=== PATIENT | female | born 1990 | race Caucasian/White ===

== ENCOUNTER 2017-04-30 15:07 | Emergency (ER) | payer OTHER ==
[2017-04-30 15:08] VITALS: BMI 37.1
--- NOTE | 2017-04-30 15:32 | C.PDOC ---
History Of Present Illness 26 y/o female presents to ED with complaints of missed menses this month. Patient reports she is sexually active with no protection and had 1 episode of vomiting yesterday and another one today after eating lunch. At ED patient denies urinary symptoms and states menses began while at ED. Patient denies fever, abdominal pain or any other complaints at this time. Time Seen by Provider: 04/30/17 15:23 Chief Complaint (Nursing): Female Genitourinary History Per: Patient History/Exam Limitations: no limitations Onset/Duration Of Symptoms: Days Current Symptoms Are (Timing): Still Present Associated Symptoms: Nausea, Vomiting. denies: Fever, Diarrhea, Urinary Symptoms Past Medical History Reviewed: Historical Data, Nursing Documentation, Vital Signs Vital Signs: Last Vital Signs Temp 98.2 F 04/30/17 15:13 Pulse 86 04/30/17 15:13 Resp 20 04/30/17 15:13 BP 131/71 04/30/17 15:13 Pulse Ox 97 04/30/17 15:46 - [facility] Procedures DELIVERY OF PRODUCTS OF CONCEPTION, EXTERNAL APPROACH (09/10/15) INTRODUCTION OF SERUM/TOX/VACCINE INTO MUSCLE, PERC APPROACH (09/10/15) MONITORING OF POC, CARDIAC RATE, SUPERVISOR BLOOMING MILL APPROACH (09/10/15) REPAIR FEMALE PERINEUM, EXTERNAL APPROACH (09/10/15) Family History: States: No Known Family Hx - Social History Hx Alcohol Use: No Hx Substance Use: No - Immunization History Hx Tetanus Toxoid Vaccination: Yes Hx Influenza Vaccination: Yes Hx Pneumococcal Vaccination: No Review Of Systems Constitutional: Negative for: Fever, Chills Gastrointestinal: Positive for: Vomiting. Negative for: Nausea, Abdominal Pain Genitourinary: Negative for: Dysuria, Frequency Skin: Negative for: Rash Neurological: Negative for: Weakness, Headache, Dizziness Physical Exam - Physical Exam Appears: Non-toxic, No Acute Distress Skin: Normal Color, Warm Head: Atraumatic, Normacephalic Oral Mucosa: Moist Neck: Normal ROM Cardiovascular: Rhythm Regular, No Murmur Respiratory: No Rales, No Rhonchi, No Wheezing Gastrointestinal/Abdominal: Soft, No Tenderness, No Guarding, No Rebound Extremity: Normal ROM Neurological/Psych: Oriented x3, Normal Speech, Normal Cognition ED Course And Treatment O2 Sat by Pulse Oximetry: 97 (RA) Pulse Ox Interpretation: Normal Disposition Counseled Patient/Family Regarding: Diagnosis, Need For Followup - Disposition Disposition: HOME/ ROUTINE Disposition Time: 15:44 Condition: STABLE Additional Instructions: Follow up with your quality assurance coordinator. Return to ER for any worsening symptoms. Forms: General Discharge Instructions - Clinical Impression Clinical Impression: Menstrual period late - PA / SLIMER / Resident Statement MD/DO has reviewed & agrees with the documentation as recorded. - Scribe Statement The provider has reviewed the documentation as recorded by the Sony Hamlin All medical record entries made by the Sony were at my direction and personally dictated by me. I have reviewed the chart and agree that the record accurately reflects my personal performance of the history, physical exam, medical decision making, and the department course for this patient. I have also personally directed, reviewed, and agree with the discharge instructions and disposition.
[2017-04-30 16:06] VITALS: BP 124/85; PULSE 90; RESP 18; TEMP 98.4; O2SAT 96
== END 2017-04-30 15:58 | disposition home or self-care (01) ==
LOC: MERGE 15:07 → C.ER 15:07
DX: N91.0 Primary amenorrhea (principal)

== ENCOUNTER 2018-10-21 15:59 | Emergency (ER) | payer OTHER ==
[2018-10-21 15:59] VITALS: BMI 37.5
[2018-10-21 16:07] VITALS: BP 144/99; PULSE 104; RESP 20; TEMP 97.5; O2SAT 99
--- NOTE | 2018-10-21 16:31 | C.PDOC ---
History Of Present Illness 28-year-old female presents to the ED for evaluation of right ankle injury sustained just prior to arrival. Patient states while walking in the parking lot out back she stepped on uneven pavement and fell. Now she complains of pain and swelling to the right ankle. Patient also sustained an abrasion to the left knee. Reports she is unable to bear weight on the right leg. Patient otherwise denies any numbness, tingling, or other injury. Ice pack and Tylenol PO provided in triage. Time Seen by Provider: 10/21/18 16:06 Chief Complaint (Nursing): Lower Extremity Problem/Injury History Per: Patient History/Exam Limitations: no limitations Onset/Duration Of Symptoms: Mins Current Symptoms Are (Timing): Still Present - Ankle/Foot Description Of Injury: Fell Currently Unable To: Bear Weight Past Medical History Reviewed: Historical Data, Nursing Documentation, Vital Signs Vital Signs: Last Vital Signs Temp 97.5 F L 10/21/18 16:06 Pulse 104 H 10/21/18 16:06 Resp 20 10/21/18 16:06 BP 144/99 H 10/21/18 16:06 Pulse Ox 99 10/21/18 16:06 - Medical History PMH: HTN Denies: Depression, Diabetes Surgical History: No Surg Hx - [facility] Procedures DELIVERY OF PRODUCTS OF CONCEPTION, EXTERNAL APPROACH (02/03/18) INTRODUCTION OF SERUM/TOX/VACCINE INTO MUSCLE, PERC APPROACH (09/10/15) MONITORING OF POC, CARDIAC RATE, MATTRESS STRIPPER APPROACH (02/03/18) REPAIR FEMALE PERINEUM, EXTERNAL APPROACH (09/10/15) REPAIR PERINEUM SKIN, EXTERNAL APPROACH (02/03/18) Family History: States: No Known Family Hx - Social History Hx Tobacco Use: No Hx Alcohol Use: No (due to ) Hx Substance Use: No - Immunization History Hx Tetanus Toxoid Vaccination: No Hx Influenza Vaccination: Yes (2014) Hx Pneumococcal Vaccination: No Review Of Systems Musculoskeletal: Positive for: Leg Pain (Left knee pain and abrasion), Foot Pain (right ankle pain/swelling), Other (Unable to bear weight) Skin: Negative for: Rash Neurological: Negative for: Weakness, Numbness Physical Exam - Physical Exam Appears: Well, Non-toxic, No Acute Distress Skin: Warm, Dry, No Rash Head: Atraumatic, Normacephalic Eye(s): bilateral: Normal Inspection Neck: Normal ROM Extremity: No Normal ROM (Limited ROM secondary to pain), Tenderness (to the right lateral malleolus), Capillary Refill (less than 2 sec), No Deformity, Swelling (moderate swelling to the right ankle), Other (+ superficial abrasion to the left knee, no gross swelling or ecchymosis) Pulses: Left Dorsalis Pedis: Normal, Right Dorsalis Pedis: Normal Neurological/Psych: Oriented x3, Normal Motor, Normal Sensation ED Course And Treatment O2 Sat by Pulse Oximetry: 99 (RA) Pulse Ox Interpretation: Normal - Other Rad X-ray left knee X-Ray: Read By Radiologist Interpretation: Accession No. : [id number]. Patient Name / ID : NICOLE ZAMUDIO / [id number]. Exam Date : 10/21/2018 16:25:24 ( Approved ). Study Comment : Sex / Age : F / 28Y. Creator : Brenna Avitia MD. Dictator : Brenna Avitia MD. Senior Education Specialist : Corner Trimmer Operator : Brenna Avitia MD. Approver2 : Report Date : 10/21/2018 18:30:00. My Comment : . PROCEDURE: Left Knee Radiographs. HISTORY: pain s.p fall. COMPARISON: No prior. FINDINGS: Examination limited by habitus. BONES: No acute displaced fracture. JOINTS: No dislocation. JOINT EFFUSION: No significant joint effusion. OTHER FINDINGS: None. IMPRESSION: No acute displaced fracture, dislocation, or significant joint effusion identified. If symptoms persist, or if there is continued clinical concern, x-ray follow-up in 7-10 days should be considered. X-ray right ankle X-Ray: Read By Radiologist Interpretation: Accession No. : [id number]. Patient Name / ID : NICOLE ZAMUDIO / [id number]. Exam Date : 10/21/2018 16:25:37 ( Approved ). Study Comment : Sex / Age : F / 28Y. Creator : Brenna Avitia MD. Dictator : Brenna Avitia MD. Senior Education Specialist : Corner Trimmer Operator : Brenna Avitia MD. Approver2 : Report Date : 10/21/2018 18:31:58. My Comment : . PROCEDURE: Right Ankle Radiographs. HISTORY: pain s.p fall. COMPARISON: None available. FINDINGS: BONES: Irregularity about the distal fibula at the lateral malleolus consistent with acute intra-articular fracture. The remainder the visualized osseous structures appear intact without acute displaced fracture identified. JOINTS: No dislocation. SOFT TISSUES: Soft tissue swelling. No evidence of radiopaque foreign body. OTHER FINDINGS: None. IMPRESSION: Appearance consistent with acute fracture of the distal fibula with intra-articular extension. Associated soft tissue swelling. Medical Decision Making Medical Decision Making: Impression: Right ankle pain, left knee pain, s/p fall Plan: X-rays taken of right ankle and left knee Progress: 1720 Page podiatry consult 1723 Podiatry resident returned call, imaging reviewed, and will come to evaluate patient and place splint. 1735 Podiatry states he will be delayed because of surgical procedure at [place] and to inform patient if willing to wait. I informed the patient and she states she will wait. 2014 Podiatry Floydjelly arrives to ED. He applied splint and gave patient follow up instructions Disposition Counseled Patient/Family Regarding: Diagnosis, Need For Followup, Rx Given - Disposition Referrals: at [facility] [Outside] [facility] [Outside] Marla Yost DPM [Staff Provider] - Disposition: HOME/ ROUTINE Disposition Time: 17:39 Condition: GOOD Additional Instructions: Your xray shows a fracture. It is very important you follow up with orthopedic within 1-4 days. A splint has been applied which is a temporary cast. Do not wet splint, keep out of bath, and consider plastic bag. Follow up with road builder Prescriptions: Ibuprofen [Motrin] 600 mg PO Q8 #30 tab oxyCODONE/Acetaminophen [Percocet 5/325 mg Tab] 1 tab PO Q8 PRN #20 tab PRN Reason: Pain, Severe (8-10) Instructions: Ankle Fracture (DC) Print Language: THAI - POA Present On Arrival: Falls Or Trauma - Clinical Impression Clinical Impression: Ankle fracture, Fall from slip, trip, or stumble - PA / WORK MANAGER / Resident Statement MD/DO has reviewed & agrees with the documentation as recorded. - Scribe Statement The provider has reviewed the documentation as recorded by the Sony Russ All medical record entries made by the Nunuibmeli were at my direction and personally dictated by me. I have reviewed the chart and agree that the record accurately reflects my personal performance of the history, physical exam, medical decision making, and the department course for this patient. I have also personally directed, reviewed, and agree with the discharge instructions and disposition.
--- NOTE | 2018-10-21 18:33 | RAD ---
PROCEDURE: Left Knee Radiographs. HISTORY: pain s.p fall COMPARISON: No prior. FINDINGS: Examination limited by habitus. BONES: No acute displaced fracture. JOINTS: No dislocation. JOINT EFFUSION: No significant joint effusion. OTHER FINDINGS: None. IMPRESSION: No acute displaced fracture, dislocation, or significant joint effusion identified. If symptoms persist, or if there is continued clinical concern, x-ray follow-up in 7-10 days should be considered.
--- NOTE | 2018-10-21 18:35 | RAD ---
PROCEDURE: Right Ankle Radiographs. HISTORY: pain s.p fall COMPARISON: None available. FINDINGS: BONES: Irregularity about the distal fibula at the lateral malleolus consistent with acute intra-articular fracture. The remainder the visualized osseous structures appear intact without acute displaced fracture identified. JOINTS: No dislocation. SOFT TISSUES: Soft tissue swelling. No evidence of radiopaque foreign body. OTHER FINDINGS: None. IMPRESSION: Appearance consistent with acute fracture of the distal fibula with intra-articular extension. Associated soft tissue swelling.
--- NOTE | 2018-10-21 21:03 | CP.PCM.CON ---
History of Present Illness - History of Present Illness History of Present Illness: Podiatry Consult note for attending Dr. Yost: 28 y/o female PMH HTN seen and evaluated in the ED for R ankle pain and swelling. 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 Patient states that she felt pain immediately and couldn't step over her right foot. Patient states that her right ankle got swallen from outside also. Patient rates the pain as 9/10 on VAS scale. She states that the pain went down to 3/10 after taking Tylenol. . Patient denies any tingling, numbness or burning sensation to the affected lower extremity. Patient deniesany recent f/n/v/d/c or sob. Patient denies any other pedal complaint at this time PMH: HTN PSH: None Allergies: NKDA Social hx: Denies tobaco, EtOH user; denies illicit drug use Review of Systems - Review of Systems Review of Systems: As per HPI - Constitutional Constitutional: As Per HPI Past Patient History - Past Social History Smoking Status: Never Smoked - CARDIAC Hx Hypertension: Yes - PSYCHIATRIC Hx Depression: No Hx Substance Use: No - SURGICAL HISTORY Hx Surgeries: No - ANESTHESIA Hx Anesthesia: No Hx Anesthesia Reactions: No Meds Allergies/Adverse Reactions: Allergies Allergy/AdvReac Type Severity Reaction Status Date / Time No Known Allergies Allergy Verified 10/21/18 16:05 Physical Exam - Constitutional Appears: Well, Non-toxic, No Acute Distress - Head Exam Head Exam: ATRAUMATIC, NORMOCEPHALIC - Extremities Exam Additional comments: Right LE focused exam: Vasc: DP/PT 2/4, Cap refill < 3 sec to all digits, Temp gradient warm to cool from proximal to distal. Moderate non pitting edema noted at the lateral malleolous. Neuro: Gross sensation and protective sensation are intact. Derm: No open lesions, No clinical signs of active infection. MSK: Muscle power couldn't be assessed as the patient is guarding due to pain in her ankle. Patient could perform active ROM with her toes. Pain on palpating the lateral malleolous. Pain with Passive ROM (mainly plantar and dorsi flexion of the ankle). - Neurological Exam Neurological exam: Alert, Oriented x3 - Psychiatric Exam Psychiatric exam: Normal Affect, Normal Mood Results - Vital Signs Recent Vital Signs: Last Vital Signs Temp 97.5 F L 10/21/18 16:06 Pulse 104 H 10/21/18 16:06 Resp 20 10/21/18 16:06 BP 144/99 H 10/21/18 16:06 Pulse Ox 99 10/21/18 18:36 Assessment & Plan - Assessment and Plan (Free Text) Assessment: 28 y/o female patient seen and evaluated in the ED for R lower fibular fracture. Plan: - Patient seen and evaluated in the ED. - Plan discussed in details with attending Dr. Yost. - Charts and vitals reviewed; Patient is afebrile. - X-ray R ankle reviewed; Fracture distal fibula with intra-articular extension and soft tissue swelling. - Posterior splint applied to the RLE . - Patient instructed to keep the posterior splint C/D/I. - RICE protocol educated to the patient. - Patient instructed to use the pain medication provided to her by the ED doctor in case that he has sever pain. - Patient instructed to stay NWB to the RLE. - Dispensed pair of crutched to the patient. - Patient expressed verbal understanding. - Patient will follow up with Dr. Yost at her office. - Thank you for consulting podiatry service. - Date & Time Date: 10/21/18 Time: 21:03
== END 2018-10-21 21:33 | disposition home or self-care (01) ==
LOC: C.ER 15:59
DX: S82.491A Other fracture of shaft of right fibula, initial encounter for closed fracture (principal); W01.0XXA Fall on same level from slipping, tripping and stumbling without subsequent striking against object, initial encounter; Y93.01 Activity, walking, marching and hiking; Y92.481 Parking lot as the place of occurrence of the external cause

== ENCOUNTER 2019-01-13 14:40 | Emergency (ER) | payer OTHER ==
[2019-01-13 14:40] VITALS: BMI 37.5
[2019-01-13 14:47] VITALS: BP 154/100; PULSE 108; RESP 18; TEMP 101.7; O2SAT 98
--- NOTE | 2019-01-13 15:50 | C.PDOC ---
Time Seen by Provider: 01/13/19 14:56 Chief Complaint (Nursing): Flu-like Symptoms History Per: Patient Onset/Duration Of Symptoms: Days (1) Current Symptoms Are (Timing): Still Present Associated Symptoms: Fever, Chills, Sore Throat, Cough, Myalgias, Nasal Congestion, Nausea, Vomiting Severity: Moderate Additional History Per: Prior Records Past Medical History Reviewed: Historical Data, Nursing Documentation, Vital Signs Vital Signs: Last Vital Signs Temp 101.7 F H 01/13/19 14:45 Pulse 108 H 01/13/19 14:45 Resp 18 01/13/19 14:45 BP 154/100 H 01/13/19 14:45 Pulse Ox 98 01/13/19 14:45 - Medical History PMH: HTN - [facility] Procedures DELIVERY OF PRODUCTS OF CONCEPTION, EXTERNAL APPROACH (02/03/18) INTRODUCTION OF SERUM/TOX/VACCINE INTO MUSCLE, PERC APPROACH (09/10/15) MONITORING OF POC, CARDIAC RATE, BANQUET WAITER/WAITRESS APPROACH (02/03/18) REPAIR FEMALE PERINEUM, EXTERNAL APPROACH (09/10/15) REPAIR PERINEUM SKIN, EXTERNAL APPROACH (02/03/18) Family History: States: Unknown Family Hx - Social History Hx Tobacco Use: No Hx Alcohol Use: No Hx Substance Use: No - Immunization History Hx Tetanus Toxoid Vaccination: No Hx Influenza Vaccination: Yes Hx Pneumococcal Vaccination: No Review Of Systems Except As Marked, All Systems Reviewed And Found Negative. Constitutional: Positive for: Fever, Malaise ENT: Positive for: Nose Congestion, Throat Pain. Negative for: Ear Pain Cardiovascular: Negative for: Chest Pain Respiratory: Positive for: Cough. Negative for: Shortness of Breath Gastrointestinal: Negative for: Abdominal Pain, Diarrhea, Hematemesis Genitourinary: Negative for: Dysuria Musculoskeletal: Negative for: Neck Pain Skin: Negative for: Rash Neurological: Negative for: Weakness, Numbness Physical Exam - Physical Exam Appears: Non-toxic, No Acute Distress Skin: Normal Color, Warm, Dry, No Rash Head: Atraumatic, Normacephalic Eye(s): bilateral: PERRL, EOMI Oral Mucosa: Moist Throat: Erythema, No Exudate, No Drooling, No Mass Neck: Normal ROM, Supple Cardiovascular: Rhythm Regular Respiratory: Normal Breath Sounds, No Accessory Muscle Use Gastrointestinal/Abdominal: Soft, No Tenderness Back: No CVA Tenderness Extremity: Normal ROM Neurological/Psych: Oriented x3, Normal Speech, Normal Motor ED Course And Treatment - Laboratory Results Interpretation Of Abnormal: Positive for Flu A. O2 Sat by Pulse Oximetry: 98 Pulse Ox Interpretation: Normal Disposition Counseled Patient/Family Regarding: Studies Performed, Diagnosis, Need For Followup, Rx Given - Disposition Disposition: HOME/ ROUTINE Disposition Time: 15:51 Condition: STABLE Additional Instructions: Follow up with your doctor and with [facility]. Return to the ER if you develop shortness of breath, worsening of symptoms or if you have any other concerns. Prescriptions: Naproxen [Naprosyn] 1 tab PO BID PRN #20 tab PRN Reason: Pain Oseltamivir Cap [Tamiflu] 75 mg PO BID #10 cap Promethazine/Dextromethorphan [Promethazine-Dm Syrup] 5 ml PO Q4 PRN #1 syrup PRN Reason: Cough And Congestion Instructions: Flu, Adult (DC) - Clinical Impression Clinical Impression: Influenza A
== END 2019-01-13 16:07 | disposition home or self-care (01) ==
LOC: C.ER 14:40
DX: J09.X2 Influenza due to identified novel influenza A virus with other respiratory manifestations (principal)